=== PATIENT | female | born 1980 | race Caucasian/White ===

== ENCOUNTER → 2016-12-19 | Day surgery (SDC) | payer MEDICARE ==
[~2016-12-19] MED LIST: FERROUS SULFAT325 M2 PO; LANTUS100 UNIT/1 SQ; NEURONTIN 100100 MG PO; NEURONTIN 400400 MG PO; PERCOCET 5-3251 EACH PO; PHOSLO 667 MG667 MG PO; RENAGEL800 MG PO; VITAMIN C 250250 MG PO; ZANTAC300 MG PO
== END | disposition home or self-care (01) ==
LOC: OR 07:13
DX: K52.9 Noninfective gastroenteritis and colitis, unspecified (principal); E66.3 Overweight; E11.22 Type 2 diabetes mellitus with diabetic chronic kidney disease; N18.6 End stage renal disease; F17.200 Nicotine dependence, unspecified, uncomplicated; Z79.4 Long term (current) use of insulin; Z79.899 Other long term (current) drug therapy; Z53.8 Procedure and treatment not carried out for other reasons
CPT/HCPCS: 84703; J7030

== ENCOUNTER 2017-01-05 06:58 | Emergency (ER) | payer MEDICARE | END 2017-01-05 11:13 | disposition home or self-care (01) | LOC: ER1 06:58 | DX: J06.9 Acute upper respiratory infection, unspecified (principal); E11.40 Type 2 diabetes mellitus with diabetic neuropathy, unspecified; F17.210 Nicotine dependence, cigarettes, uncomplicated | CPT/HCPCS: 71020; 99283 ==

== ENCOUNTER → 2021-05-16 | Outpatient (CLI) | payer MEDICARE ==
[~2021-05-16] MED LIST changes: +AMLODIPINE BESYL5 MG PO; +AMOX TR-K CLV1 EAC4 PO; +ANTIVERT 25MG T25 MG PO; +ASPIRIN 325MG325 MG PO; +BACTROBAN OINT22 GM TOP; +BETADINE946 ML TOP; +CIPRO250 MG PO; +CIPRO500 MG PO; +CLARITIN 10MG T10 MG PO; +DOME-PASTE BANDA1 EA EXT; +ECOTRIN81 MG PO; +FEOSOL325 MG PO; +FORTAZ1 G1 IV; +GENTAMICIN80 MG/101 IV; +KEFLEX CAP 500500 MG PO; +LEVAQUIN750 MG PO; +LIPITOR TAB 2020 MG PO; +LISINOPRIL10 MG PO; +LOPRESSOR 25 MG25 MG PO; +NORCO 7.5-3251 EACH PO; +NOVOLOG100 UNIT/1 SQ; +PERCOCET 10-321 EACH PO; +PHENERGAN 12.12.5 M1 PO; +POVIDONE-IOD28.35 GM TOP; +PROCRIT10000 UNIT INJ; +VALIUM 2 MG TAB2 MG PO; +VITAMIN C 500500 MG PO
== END ==
LOC: WCC 09:58
DX: E11.621 Type 2 diabetes mellitus with foot ulcer (principal); L97.529 Non-pressure chronic ulcer of other part of left foot with unspecified severity; E11.628 Type 2 diabetes mellitus with other skin complications; L97.829 Non-pressure chronic ulcer of other part of left lower leg with unspecified severity; I12.0 Hypertensive chronic kidney disease with stage 5 chronic kidney disease or end stage renal disease; E11.22 Type 2 diabetes mellitus with diabetic chronic kidney disease; N18.6 End stage renal disease; E11.610 Type 2 diabetes mellitus with diabetic neuropathic arthropathy; F17.210 Nicotine dependence, cigarettes, uncomplicated; Z79.4 Long term (current) use of insulin; Z79.01 Long term (current) use of anticoagulants
CPT/HCPCS: G0463

== ENCOUNTER → 2021-05-26 | Outpatient (CLI) | payer MEDICARE, OTHER | LOC: KOH-I 13:08 | DX: M79.672 Pain in left foot (principal); R93.6 Abnormal findings on diagnostic imaging of limbs | CPT/HCPCS: 73630 ==

== ENCOUNTER → 2021-06-09 | Outpatient (CLI) | payer MEDICARE | LOC: WCC 07:25 | DX: E11.621 Type 2 diabetes mellitus with foot ulcer (principal); L97.525 Non-pressure chronic ulcer of other part of left foot with muscle involvement without evidence of necrosis; L97.522 Non-pressure chronic ulcer of other part of left foot with fat layer exposed; I12.0 Hypertensive chronic kidney disease with stage 5 chronic kidney disease or end stage renal disease; N18.6 End stage renal disease; Z99.2 Dependence on renal dialysis; Z79.4 Long term (current) use of insulin; E11.610 Type 2 diabetes mellitus with diabetic neuropathic arthropathy; Z72.0 Tobacco use; Z79.01 Long term (current) use of anticoagulants | CPT/HCPCS: 97597 ==

== ENCOUNTER 2021-07-06 12:39 | Emergency (ER) | payer MEDICARE ==
[~2021-07-06 12:39] MED LIST changes: +HYDROCODON-ACE1 EAC4 PO; -NORCO 7.5-3251 EACH PO
[2021-07-06 14:08] LABS: HEMOGLOBIN 9.7 gm/dl (12.3-15.3); RED BLOOD COUNT 3.42 M/UL (4.00-5.10); WHITE BLOOD COUNT 10.3 K/UL (4.5-11.0)
[2021-07-06 14:31] LABS: BUN/CREATININE RATIO 6 (0-10)
[2021-07-06] MEDS ORDERED: ZOFRAN ODT 4 MG4 MG PO (21:49)
[2021-07-08] MEDS ORDERED: LISINOPRIL20 MG PO (11:42)
[2021-07-08] MEDS ORDERED: CARVEDILOL25 MG PO (11:44)
[2021-07-08] MEDS ORDERED: PROTONIX 40 MG40 M1 PO (11:45)
[2021-07-08] MEDS ORDERED: CLONIDINE1 EAC2 TD (11:46)
[2021-07-08] MEDS ORDERED: HYDRALAZINE HC100 MG PO (11:46)
== END 2021-07-07 03:12 | disposition home or self-care (01) ==
LOC: ER1 12:39
PROVIDERS: Emergency Medicine
DX: I12.0 Hypertensive chronic kidney disease with stage 5 chronic kidney disease or end stage renal disease (principal); E11.22 Type 2 diabetes mellitus with diabetic chronic kidney disease; N18.6 End stage renal disease; R11.2 Nausea with vomiting, unspecified; Z20.822 Contact with and (suspected) exposure to COVID-19
CPT/HCPCS: 80053; 82550; 82553; 82962; 83605; 83690; 83735; 83874; 84484; 85025; 87040; 93005; 96372; 96374; 96375; 99284; J0780; J2060; J2270; J2405; U0002

== ENCOUNTER 2021-09-13 14:03 | Emergency (ER) | payer MEDICARE ==
[~2021-09-13 14:03] MED LIST changes: +CARVEDILOL25 MG PO; +CLONIDINE1 EAC2 TD; +HYDRALAZINE HC100 MG PO; +LISINOPRIL20 MG PO; +PROTONIX 40 MG40 M1 PO; +ZOFRAN ODT 4 MG4 MG PO
[2021-09-13 15:28] LABS: HEMOGLOBIN 8.5 gm/dl (12.3-15.3); RED BLOOD COUNT 3.02 M/UL (4.00-5.10); WHITE BLOOD COUNT 5.6 K/UL (4.5-11.0)
[2021-09-13 16:10] LABS: BUN/CREATININE RATIO 11 (0-10)
[2021-09-14 23:04] LABS: ACINETOBACTER BAUMANNII Not Detected (Negative); CANDIDA ALBICANS Not Detected (Negative); CANDIDA KRUSEI Not Detected (Negative); CANDIDA TROPICALIS Not Detected (Negative); ENTEROCOCCUS Not Detected (Negative); ESCHERICHIA COLI Not Detected (Negative); HAEMOPHILUS INFLUENZAE Not Detected (Negative); KLEBSIELLA OXYTOCA Not Detected (Negative); KLEBSIELLA PNEUMONIAE Not Detected (Negative); KPC-CARBAPENEM-RESISTANCE GENE Not Detected (Negative); PROTEUS Not Detected (Negative); PSEUDOMONAS AERUGINOSA Not Detected (Negative); SERRATIA MARCESANS Not Detected (Negative); STAPHYLOCOCCUS AUREUS Not Detected (Negative); STREP AGALACTIAE (GROUP B) Not Detected (Negative); STREP PYOGENES (GROUP A) Not Detected (Negative); STREPTOCOCCUS Not Detected (Negative); vanA/B (VANCOMYCIN RESIST GENE Not Detected (Negative)
[2021-09-15 00:11] LABS: mecA (METHICILLIN RESIST GENE DETECTED (Negative)
[2021-09-15 00:14] LABS: STAPHYLOCOCCUS DETECTED (Negative)
== END 2021-09-13 20:50 | disposition expired ==
LOC: ER1 14:03
PROVIDERS: Emergency Medicine
DX: I46.9 Cardiac arrest, cause unspecified (principal); Z20.822 Contact with and (suspected) exposure to COVID-19; R00.1 Bradycardia, unspecified; E87.2 Acidosis; E87.5 Hyperkalemia; J96.91 Respiratory failure, unspecified with hypoxia
CPT/HCPCS: 0240U; 31500; 36600; 71045; 74018; 80053; 82140; 82550; 82553; 82803; 82962; 83605; 83735; 83874; 83880; 84100; 84484; 85025; 87040; 87150; 94002; 94760; 96374; 96375; 96376; 99285; J0171; J1265; J2250; J7070